=== PATIENT | male | born 1975 | race Caucasian/White ===

== ENCOUNTER → 2017-07-11 09:10 | Emergency (ER) | payer OTHER ==
[2017-07-11 09:16] VITALS: BP 133/74
--- NOTE | 2017-07-11 09:50 | ED ---
Laceration/Wound HPI - HPI Summary HPI Summary: 41 male presents to ED with complaints of a laceration to right posterior thigh that he sustained just [employer] while jumping off a bunk bed and sliding it against the metal locker. Patient denies any other injuries or pain. Did not hit head. Nurse did not know if he would need stitches. Patient is in minimal pain. No other complaints at this time. Tetanus is UTD. No PMHx. Minimal bleeding. Already irrigated and cleaned with hydrogen peroxide, [employer]. - History of Current Complaint Stated Complaint: RT LEG LAC Time Seen by Provider: 07/11/17 09:28 Hx Obtained From: Patient Mechanism of Injury: Sharp/Blunt Trauma Onset/Duration: Sudden Onset Aggravating: Movement Alleviating: Compression Onset Severity: Moderate Current Severity: Mild Pain Intensity: 5 Pain Scale Used: 0-10 Numeric Associated Signs & Symptoms: Negative - Allergy/Home Medications Allergies/Adverse Reactions: Allergies Allergy/AdvReac Type Severity Reaction Status Date / Time No Known Allergies Allergy Verified 07/11/17 09:16 PMH/Surg Hx/FS Hx/Imm Hx Endocrine/Hematology History: Denies: Hx Anticoagulant Therapy, Hx Diabetes Cardiovascular History: Denies: Hx Hypertension Respiratory History: Denies: Hx Asthma - Surgical History Surgery Procedure, Year, and Place: none - Immunization History Date of Tetanus Vaccine: 2014 Immunizations Up to Date: Yes Infectious Disease History: No Infectious Disease History: Denies: Traveled Outside the [place] in Last 30 Days - Family History Known Family History: Positive: None - Social History Alcohol Use: None Substance Use Type: Reports: None Smoking Status (MU): Former Smoker Review of Systems Constitutional: Negative Cardiovascular: Negative Respiratory: Negative Musculoskeletal: Negative Positive: Other - abrasion/laceration Neurological: Negative All Other Systems Reviewed And Are Negative: Yes Physical Exam Triage Information Reviewed: Yes Vital Signs On Initial Exam: Initial Vitals Temp Pulse Resp BP Pulse Ox 97.0 F 67 16 133/74 100 07/11/17 09:13 07/11/17 09:13 07/11/17 09:13 07/11/17 09:13 07/11/17 09:13 Vital Signs Reviewed: Yes Appearance: Positive: Well-Appearing, No Pain Distress, Well-Nourished Skin: Positive: Warm, Skin Color Reflects Adequate Perfusion, Dry, Other - 11.5cm linear abrasion noted to posterior right thigh, erythematous. superficial skin, not deep. no other edema, ecchymosis or signs of trauma. Negative: Cold, Numb, Soft, Pale Head/Face: Positive: Normal Head/Face Inspection Eyes: Positive: Conjunctiva Clear ENT: Positive: Hearing grossly normal Neck: Positive: Supple, Nontender Respiratory/Lung Sounds: Positive: Clear to Auscultation, Breath Sounds Present. Negative: Rales, Rhonchi, Wheezes Cardiovascular: Positive: Normal, RRR, Pulses are Symmetrical in both Upper and Lower Extremities Musculoskeletal: Positive: Normal, Strength/ROM Intact. Negative: Limited @, Interruption @, Pain @ Neurological: Positive: Normal, Sensory/Motor Intact - sensation intact, Alert, Oriented to Person Place, Time, Reflexes Intact, NV Bundle Intact Distally, Normal Gait - Gerald Coma Scale Coma Scale Total: 15 Procedures - Laceration/Wound Repair 1 Location: lower extremity - right posterior thigh Description: Linear Length, Depth and Shape: 11.5cm abrasion with proximal ~1cm area slightly deeper than rest of wound. linear Irrigated w/ Saline (ccs): 200 Closure: Skin Adhesive - to proximal 1cm of wound, well approximated Sterile Dressing Applied?: Yes - xeroform, telfa and kerlex/coband Diagnostics - Vital Signs Vital Signs Temp Pulse Resp BP Pulse Ox 07/11/17 09:13 97.0 F 67 16 133/74 100 - Laboratory Lab Statement: Any lab studies that have been ordered have been reviewed, and results considered in the medical decision making process. Laceration Repair Course/Dx - Course Course Of Treatment: No concern for MSK injury. No pain other than when touching abrased area. Irrigated with normal saline. Hydrogen peroxide was used [employer]. 11.5cm abrasion with proximal 1cm slightly deeper than rest. Proximal 1cm was closed with skin adesive without complication, well-approximated and healed nicely. No other concern at this time. Dressed with xeroform, telfa, kerlex and coband. Do not get wet 24-48 hours. Keep clean and dry after, gently rinse, apply triple antibiotic and re-dress. Follow up. Aware of worsening signs and symptoms. Tetanus already UTD. - Differential Dx Differental Diagnoses: Abrasion, Avulsion, Laceration, Puncture Wound - Clinical Impression Provider Diagnoses: Abrasion of thigh, right Discharge - Discharge Plan Condition: Improved Disposition: HOME Patient Education Materials: Abrasion (ED), Skin Adhesive Care (ED) Additional Instructions: Keep clean and dry for atleast 24-48 hours. After remove dressing, gently rinse clean, apply triple antibiotic and re-dress. Watch for worsening signs and symptoms such as infection. If these occur please seek medical attention promptly. Follow up with facility nurse.
== END | disposition home or self-care (01) ==
LOC: ED 09:10
DX: S70.311A Abrasion, right thigh, initial encounter (principal); W22.8XXA Striking against or struck by other objects, initial encounter; Y93.89 Activity, other specified; Y92.219 Unspecified school as the place of occurrence of the external cause; Z87.891 Personal history of nicotine dependence
CPT/HCPCS: 99282